=== PATIENT | male | born 1955 | race Two or more races ===

== ENCOUNTER 2021-09-09 06:20 | Emergency (ER) | payer OTHER ==
[~2021-09-09] VITALS: Ht 182.9 cm; Wt 122.5 kg
== END 2021-09-09 13:04 | disposition home or self-care (01) ==
LOC: ER 06:20
DX: H60.8X3 Other otitis externa, bilateral (principal); I10 Essential (primary) hypertension; R00.2 Palpitations

== ENCOUNTER 2024-10-22 04:32 | Emergency (ER) | payer OTHER ==
[~2024-10-22] VITALS: Ht 190.5 cm; Wt 90.7 kg
[2024-10-22] MEDS ORDERED: NIFEDIPINE 10 MG CAPSULE PO STA ×2 (04:55→07:38)
[2024-10-22] MEDS ORDERED: CEFTRIAXONE SODIUM 1,000 MG VIAL IM STA (07:47)
== END 2024-10-22 09:07 | disposition home or self-care (01) ==
LOC: ER 04:33
DX: G89.11 Acute pain due to trauma (principal); M79.662 Pain in left lower leg; I10 Essential (primary) hypertension

== ENCOUNTER → 2024-10-22 | Emergency (ER) | payer OTHER | END | disposition left against medical advice (07) | LOC: ER 00:30 | DX: Z53.21 Procedure and treatment not carried out due to patient leaving prior to being seen by health care provider (principal) ==

== ENCOUNTER → 2024-11-18 | Emergency (ER) | payer OTHER ==
[~2024-11-18] VITALS: Ht 188 cm; Wt 128.8 kg
[~2024-11-18] MED LIST: BACITRACIN ZINC 0.9 GM OINT.PACKET TOP ONE; BACITRACIN-NEOMYCIN-POLYMYXIN 0.9 GM PACKET TOP ONE; CEFAZOLIN SODIUM 1,000 MG VIAL IV STA; CEFAZOLIN SODIUM 1,000 MG VIAL ONE; HYDROCHLOROTHIA25 MG
== END | disposition home or self-care (01) ==
LOC: ER 07:36
DX: S81.812A Laceration without foreign body, left lower leg, initial encounter (principal); X58.XXXA Exposure to other specified factors, initial encounter; Y93.89 Activity, other specified; Y92.89 Other specified places as the place of occurrence of the external cause; Y99.9 Unspecified external cause status; B99.8 Other infectious disease; I10 Essential (primary) hypertension